=== PATIENT | female | born 1970 | race Caucasian/White ===

== ENCOUNTER 2022-12-27 16:44 | Emergency (ER) | payer MEDICAID, SELFPAY ==
--- NOTE | ~2022-12-27 | XR_ITS ---
EXAMINATION: XR chest 2V Exam Date/Time: 12/27/2022 17:05 CDT HISTORY: SOB, COUGH, CP Comparison: None available. RESULT: Lines, tubes, and devices: Cholecystectomy clips. Lungs and pleura: Unremarkable. Cardiomediastinal silhouette: Stable. Other: No acute osseous or upper abdominal finding. IMPRESSION: No acute cardiopulmonary process. Reviewed, dictated and finalized at location K.
[2022-12-27 16:50] VITALS: BP 121/65; PULSE 100; RESP 20; TEMP 37.3; O2SAT 100
--- NOTE | 2022-12-27 17:14 | ED.URI ---
HPI - URI/Sore Throat General Chief Complaint: Upper Respiratory Infection Stated Complaint: cold/flu Time Seen by Provider: 12/27/22 17:15 Source: patient, RN notes reviewed and old records reviewed Mode of arrival: ambulatory Limitations: no limitations History of Present Illness HPI Narrative: 52 year old female who presents to [facility] who is visiting from [place] since Sunday she has been experiencing some shortness of breath, tightness to chest with her breathing and harsh cough.Patient reports that she has taken some DayQuil and NyQuil for her symptoms. Patient reports history of bronchitis and pneumonia, denies any tobacco use, reports that she has been exposed to second hand tobacco for most of her life.Patient requests chest x-ray and COVID test. Patient reports 2/10 pain level described as soreness and tightness to chest aggravated by cough and sneezing. Patient reports that she has been Covid vaccinated had COVID 2021 X2. MD elicited complaint: cough and other (shortness of breath reported and tightness with breathing) Pertinent past history: other (bronchitis) Onset (ago): day(s) (3) Pain scale (0-10): 2 Able to tolerate fluids by mouth: Yes Exacerbating factors: other (coughing and sneezing) Treatments prior to arrival: other (DayQuil and [place]Quil) Related Data Home Medications Medication Instructions Recorded Confirmed alprazolam 0.25 mg tablet mg 12/27/22 desvenlafaxine succinate 100 mg mg PO 12/27/22 tablet,extended release 24 hr hydroxyzine HCl 25 mg tablet mg 12/27/22 omeprazole 20 mg capsule,delayed mg 12/27/22 release rimegepant 75 mg disintegrating mg 12/27/22 tablet ([facility] ODT) triamterene 37.5 cap 12/27/22 mg-hydrochlorothiazide 25 mg capsule Allergies Allergy/AdvReac Type Severity Reaction Status Date / Time Sulfa (Sulfonamide Allergy Hives Verified 12/27/22 17:08 Antibiotics) acetaminophen [From Fioricet] AdvReac Other Verified 12/27/22 17:08 butalbital [From Fioricet] AdvReac Other Verified 12/27/22 17:08 caffeine [From Fioricet] AdvReac Other Verified 12/27/22 17:08 codeine AdvReac Migraine Verified 12/27/22 17:09 Review of Systems Review of Systems: CONSTITUTIONAL: Reports malaise, chills, sweats, or fever. EYES: Denies visual changes, redness, or discharge. ENT: Reports rhinorrhea, congestion, sinus pain,no otalgia initial sore throat resolved. CARDIOVASCULAR: Denies no acute chest pain, palpitations, or edema.reports tightness and soreness to chest aggravated by cough and sneezing RESPIRATORY: Reports cough.? Reports tightness to chest with her breathing and some dyspnea. GASTROINTESTINAL: Denies abdominal pain, nausea, vomiting, diarrhea SKIN: Denies rash or itching. MUSCULOSKELETAL: Denies myalgia. NEUROLOGIC: Denies headache. All systems reviewed & are unremarkable except as noted in HPI and below PMFSH Past Medical History Medical History (Updated 12/28/22 @ 21:50 by Asha Doyle NP) Anxiety and depression Bronchitis COVID-19 2021 x2 Hx of migraines Pneumonia Seasonal allergies Surgical History Surgical History (Updated 12/28/22 @ 21:51 by Asha Doyle NP) History of appendectomy History of bladder surgery bladder sling History of cholecystectomy Social History Social History (Updated 12/27/22 @ 17:32 by Asha Doyle NP) Smoking status: Never smoker Comments At time of signature, agree with nursing past medical, surgical, social and family history. There is no relevant family history pertinent to the presenting complaint Exam Narrative: GENERAL: Well-appearing, well-nourished, and in no acute distress, anxious. HEAD: Normocephalic EYES: PERRLA, conjunctivae clear ENT: Nares clear, turbinates edematous and erythematous, clear discharge. Mucous membranes moist. TM pearly laguerre with dull light reflex bilaterally; no tragal tenderness. Oropharynx erythematous without lesions. Tonsils not enlarg
== END 2022-12-27 17:35 | disposition home or self-care (01) ==
PROVIDERS: Emergency Provider Registered Nurse
DX: J40 Bronchitis, not specified as acute or chronic (principal); Z20.822 Contact with and (suspected) exposure to COVID-19; F41.9 Anxiety disorder, unspecified; F32.A Depression, unspecified; Z86.16 Personal history of COVID-19
CPT/HCPCS: 71046; 87426; 99213; C9803; G0463